=== PATIENT | male | born 1960 | race Caucasian/White ===

== ENCOUNTER → 2019-12-04 | Outpatient (CLI) | payer OTHER ==
--- NOTE | 2019-12-04 10:51 | P.STRESS ---
- Stress Test Note Stress Test Results/Findings: Exam Performed: stress echo exercise Exam Date: 12/04/19 Reason for Exam: CHEST PAIN Height: 5 ft 10 in Weight: 197 kg Protocol: BILLY Stage: 3 Duration of Exercise: 7:00 Resting Heart Rate: 87 Resting Blood Pressure: 136/57 Maximum Achieved Heart Rate: 160 Maximum Achieved Blood Pressure: 201/79 85% PMHR: 138 100% PMHR: 162 METS: 8.5 Technologist Comment: Stress Test Results/Findings: This is a 58-year-old gentleman with history of hypertension, hypercholesteremia, family history of ischemic heart disease and also smoking history. Being evaluated for chest pain, shortness of breath and palpitations. Stress data: Baseline EKG showed sinus rhythm with normal DE interval and QRS du ration. Blood pressure at rest is 136/57 with pulse rate of 87. Patient walked on the Iblly protocol for 7 minutes achieving a maximum heart rate of 159 with a blood pressure of 201/79. EKGs taken during and after exercise did not reveal any significant changes from the baseline. Echo data: Baseline echo images showed normal wall motion and thickening. Exercise echo images showed augmentation of wall motion and thickening in all the segments. Final impression : #1. Negative stress test #2. Negative stress echo
--- NOTE | 2019-12-04 11:37 | ECHOS ---
Stress Test Results/Findings: Exam Performed: stress echo exercise Exam Date: 12/04/19 Reason for Exam: CHEST PAIN Height: 5 ft 10 in Weight: 197 kg Protocol: BILLY Stage: 3 Duration of Exercise: 7:00 Resting Heart Rate: 87 Resting Blood Pressure: 136/57 Maximum Achieved Heart Rate: 160 Maximum Achieved Blood Pressure: 201/79 85% PMHR: 138 100% PMHR: 162 METS: 8.5 Technologist Comment: Stress Test Results/Findings: This is a 58-year-old gentleman with history of hypertension, hypercholesteremia, family history of ischemic heart disease and also smoking history. Being evaluated for chest pain, shortness of breath and palpitations. Stress data: Baseline EKG showed sinus rhythm with normal RI interval and QRS duration. Blood pressure at rest is 136/57 with pulse rate of 87. Patient walked on the Billy protocol for 7 minutes achieving a maximum heart rate of 159 with a blood pressure of 201/79. EKGs taken during and after exercise did not reveal any significant changes from the baseline. Echo data: Baseline echo images showed normal wall motion and thickening. Exercise echo images showed augmentation of wall motion and thickening in all the segments. Final impression : #1. Negative stress test #2. Negative stress echo MTDD
== END | disposition home or self-care (01) ==
LOC: RADNMMAIN 09:20
PROVIDERS: ATTEND Family Medicine
DX: R06.00 Dyspnea, unspecified (principal)
CPT/HCPCS: 93351

== ENCOUNTER 2020-08-26 08:04 | Day surgery (SDC) | payer OTHER ==
[2020-08-24 15:41] VITALS: BMI 27.2
[~2020-08-26 08:04] MED LIST: LACTATED RINGERS 1,000 ML IV SCH
[2020-08-26] MEDS ORDERED: LACTATED RINGERS 1,000 ML IV ONE (08:21)
[2020-08-26 08:22] VITALS: RESP 18; TEMP 97.8
[2020-08-26] MEDS ORDERED: PROPOFOL 10 MG/ML 20 ML VIAL IV ONE (09:05)
--- NOTE | 2020-08-26 09:37 | P.PCN ---
Date of Procedure: 08/26/20 Description of Procedure: BRIEF HISTORY: Patient is a 59-year-old male presenting for outpatient colonoscopy for evaluation of history of colon polyps. Last colonoscopy in 2014 with polypectomy at that time. No change in bowel habits, blood per rectum or abdominal pain reported. No family history of colon cancer PROCEDURE PERFORMED: Colonoscopy. PREOPERATIVE DIAGNOSIS: Personal history of colon polyps, last colonoscopy 2014. ESTIMATED BLOOD LOSS: Minimal. IV sedation per Anesthesia. PROCEDURE: After informed consent was obtained, the patient, was brought into the endoscopy unit. IV sedation was administered by Anesthesia under continuous monitoring. Digital rectal examination was normal. Initially the Olympus CF-190 flexible video colonoscope was then inserted in the rectum, gradually advanced into the cecum without any difficulty. Careful examination was performed as the scope was gradually being withdrawn. Ileocecal valve and the appendiceal orifice were visualized and appeared normal. Prep was excellent. Mucosa of the cecum, ascending colon, transverse colon, descending colon, sigmoid colon, and rectum appeared normal. Retroflexion was performed in the rectum and no lesions were seen, low-grade internal hemorrhoids noted. The patient tolerated the procedure well. IMPRESSION: Normal-appearing colon from rectum to cecum. Internal hemorrhoids. RECOMMENDATIONS: Findings of this examination were discussed with the patient and his family. Okay to resume diet. Okay to resume medications. Recommend repeat colonoscopy in 10 years for screening for malignant neoplasm of the colon or sooner if signs or symptoms which warrant further evaluation develop.
[2020-08-26 09:41] VITALS: BP 109/71
[2020-08-26 09:53] VITALS: PULSE 74
== END 2020-08-26 10:17 | disposition home or self-care (01) ==
LOC: ORWHC2ENDO 08:04
PROVIDERS: ATTEND Internal Medicine
DX: Z12.11 Encounter for screening for malignant neoplasm of colon (principal); K64.8 Other hemorrhoids; I10 Essential (primary) hypertension; E78.5 Hyperlipidemia, unspecified; Z86.010 Personal history of colon polyps; Z87.891 Personal history of nicotine dependence; Z79.899 Other long term (current) drug therapy; Z98.890 Other specified postprocedural states
CPT/HCPCS: J2704; G0105

== ENCOUNTER → 2021-01-11 | Outpatient (CLI) | payer OTHER ==
--- NOTE | 2021-01-20 12:49 | EM ---
EVENT MONITOR SEVEN-DAY EVENT MONITOR: INDICATION: Palpitations. This 7-day event monitor showed normal sinus rhythm with episodes of sinus tachycardia. The maximum heart rate was 130 beats per minute. No significant cardiac arrhythmias are documented. JORGE A / IONAN: [id number] /
== END | disposition home or self-care (01) ==
LOC: RADECHMAIN 11:50
PROVIDERS: ATTEND Family Medicine
DX: R00.2 Palpitations (principal)
CPT/HCPCS: 93270

== ENCOUNTER → 2021-09-17 | Outpatient (CLI) | payer OTHER ==
[2021-09-17 16:05] LABS: HGB 12.8 g/dL (13.0-17.0); MCH 28.4 pg (27.0-32.0); MCHC 33.7 g/dL (32.0-37.0); MCV 84.4 fL (80.0-97.0); Mean Platelet Volume 9.5 fL (9.5-12.2); NRBC Per 100 WBC 0 /100 WBCS (0.0-0.0); Platelet Count 266 X 10*3/uL (140-440); RDW 12.7 % (11.5-14.5); WBC 3.91 X 10*3/uL (4.50-10.00)
[2021-09-17 16:13] LABS: African American GFR (CKD) 97.8 (60.0-200.0); Anion Gap 13.4 mmol/L (10.00-18.00); Blood Urea Nitrogen 12.5 mg/dL (9.0-27.0); Carbon Dioxide 24.1 mmol/L (20.0-27.5); Non-African American GFR(CKD) 84.4 (60.0-200.0)
== END | disposition home or self-care (01) ==
LOC: LABPAT 11:08
PROVIDERS: ATTEND Internal Medicine Interventional Cardiology
DX: Z01.812 Encounter for preprocedural laboratory examination (principal); R07.9 Chest pain, unspecified
CPT/HCPCS: 80051; 82565; 84520; 85027

== ENCOUNTER 2021-09-23 10:49 | Day surgery (SDC) | payer OTHER ==
[2021-09-16 11:38] VITALS: BMI 28.7
[~2021-09-23 10:49] MED LIST changes: +ALPRAZolam 0.25 MG TAB PO PRN; +ALPRAZolam 0.5 MG TAB PO PRN; +ASPIRIN 325 MG TAB PO STA; +ATORVASTATIN 80 MG TAB PO STA; +HEPARIN SODIUM,PORCINE 10,000 UNIT in SODIUM CHLORIDE 0.9% 1,000 ML IRRIGATION PRN; +HEPARIN SODIUM,PORCINE 2,500 UNIT in SODIUM CHLORIDE 0.9% 250 ML IRRIGATION PRN; -LACTATED RINGERS 1,000 ML IV SCH; +NITROGLYCERIN SL TABS 0.4 MG TAB SUBLINGUAL PRN; +SODIUM CHLORIDE 0.9% 1,000 ML in EMPTY BAG 1 BAG IV SCH
[2021-09-23] MEDS ORDERED: SODIUM CHLORIDE 0.9% 1,000 ML IV ONE (11:00)
[2021-09-23 11:16] VITALS: TEMP 98.4
[2021-09-23] MEDS ORDERED: HEPARIN SODIUM 1,000 UN/ML (10ML VL) ONE (12:10)
[2021-09-23] MEDS ORDERED: VERAPAMIL 2.5 MG/ML 2 ML AMP ONE (12:10)
[2021-09-23] MEDS ORDERED: fentaNYL (PF) 50 MCG/ML 2 ML AMP ONE (12:33)
[2021-09-23] MEDS ORDERED: fentaNYL (PF) 50 MCG/ML 2 ML AMP IV ONE (12:34)
[2021-09-23] MEDS ORDERED: MIDAZOLAM 2 MG/2 ML VIAL IV ONE ×2 (12:34)
[2021-09-23] MEDS ORDERED: VERAPAMIL SYRINGE (5 MG/10 ML) INTRAARTER ONE (12:35)
[2021-09-23] MEDS ORDERED: LIDOCAINE 0.5% (PF) 5 MG/ML (50 ML SDV) SQ ONE (12:35)
[2021-09-23] MEDS ORDERED: HEPARIN SODIUM 1,000 UN/ML (10ML VL) IV ONE (12:38)
[2021-09-23] MEDS ORDERED: IOPAMIDOL-370 125ML BTL INJ ONE (12:48)
[2021-09-23] MEDS ORDERED: RX INFO: IV CONTRAST WAS GIVEN 1 EACH MISC MISCELLANE PRN (12:52)
--- NOTE | 2021-09-23 12:56 | P.PCN ---
Date of Procedure: 09/23/21 Operative Findings: CARDIAC CATHETERIZATION PERFORMING PHYSICIAN: Jon Perez MD, RPVI PROCEDURE PERFORMED: 1. Selective right and left coronary angiogram 2. Left heart catheterization INDICATION: This is a 6-year-old gentleman who was experiencing symptoms of chest pain and shortness of breath and he underwent myocardial perfusion imaging stress test showed an inferior ischemia. In the light of that heart catheterization was advised COMPLICATION: None APPROACH: Right radial artery LEVEL OF SEDATION: Moderate with a sedation length of then minutes PROCEDURE DESCRIPTION: After obtaining an informed consent, the patient was brought to cardiac labeling strategist. Local anesthesia was performed using lidocaine subcutaneously. The right radial artery was cannulated using Seldinger technique, the guidewire passed easily, following that we advanced a 5-Togolese sheath dilator assembly, the wire and dilator were removed and sheath was flushed. Following that, 2 mg of verapamil along with 3000 unit heparin were given. Selective right and left coronary angiogram using a 6-Togolese JR4 and JL 3.5 catheters. Following that we did left heart catheterization using 6-Togolese pigtail catheter. The procedure was completed there was no complication. SELECTIVE CORONARY ANGIOGRAM: The right coronary artery: Is a large caliber vessel and a dominant vessel. The RCA is angiographically normal. Distally bifurcates into PDA and PLV branches both appeared to be angiographically normal Left main: Is angiographically normal. Bifurcates into LCx and LAD The left circumflex: Is a large caliber vessel and nondominant vessel. The LCx appeared to be angiographically normal. Gives rises into a large limb branch which trifurcates into 3 subbranches all appears to be angiographically normal The left anterior descending artery: Is angiographically normal. Gives rises into a large diagonal branch which seems to be angiographically normal HEMODYNAMICS: The LVEDP was about 6 mmHg was no significant gradient across aortic valve CONCLUSION: 1. Normal coronary angiogram 2. Normal LVEDP POSTPROCEDURE MANAGEMENT: Medical treatment and follow-up with the patient
[2021-09-23] MEDS ORDERED: SODIUM CHLORIDE 0.9% 1,000 ML IV SCH (13:00)
[2021-09-23 15:56] VITALS: RESP 16
[2021-09-23 16:53] VITALS: BP 116/69; PULSE 75
== END 2021-09-23 16:55 | disposition home or self-care (01) ==
LOC: CATHCVL 10:49
PROVIDERS: ATTEND Internal Medicine Interventional Cardiology
DX: I20.0 Unstable angina (principal); R94.39 Abnormal result of other cardiovascular function study; I10 Essential (primary) hypertension; E78.5 Hyperlipidemia, unspecified; Z20.822 Contact with and (suspected) exposure to COVID-19; E78.00 Pure hypercholesterolemia, unspecified; R00.0 Tachycardia, unspecified; F17.200 Nicotine dependence, unspecified, uncomplicated; F10.20 Alcohol dependence, uncomplicated; I77.819 Aortic ectasia, unspecified site; Z79.899 Other long term (current) drug therapy
CPT/HCPCS: 93458; 87635; C1769; C1894; J2250; J2001; J3010; J1644; Q9967

== ENCOUNTER 2024-02-27 13:30 | Day surgery (SDC) | payer OTHER ==
[2024-02-22 12:06] VITALS: BMI 28.7
[~2024-02-27 13:30] MED LIST changes: -ALPRAZolam 0.25 MG TAB PO PRN; -ALPRAZolam 0.5 MG TAB PO PRN; -ASPIRIN 325 MG TAB PO STA; -ATORVASTATIN 80 MG TAB PO STA; -HEPARIN SODIUM,PORCINE 10,000 UNIT in SODIUM CHLORIDE 0.9% 1,000 ML IRRIGATION PRN; -HEPARIN SODIUM,PORCINE 2,500 UNIT in SODIUM CHLORIDE 0.9% 250 ML IRRIGATION PRN; +LIDOCAINE 1% (10MG/ML) FOR IV START INTRADERMA PRN; -NITROGLYCERIN SL TABS 0.4 MG TAB SUBLINGUAL PRN; -SODIUM CHLORIDE 0.9% 1,000 ML in EMPTY BAG 1 BAG IV SCH
[2024-02-27] MEDS: LACTATED RINGERS 1,000 ML IV SCH (15:14)
[2024-02-27 15:23] VITALS: RESP 16; TEMP 98
[2024-02-27] MEDS: IV FLUID CONTINUATION 1,000 ML IV ONE ×2 (15:23→15:56)
[2024-02-27] MEDS ORDERED: PROPOFOL 10 MG/ML 20 ML VIAL IV ONE (15:59)
[2024-02-27] MEDS ORDERED: LIDOCAINE 1% INJ 10MG/ML (20 ML MDV) ONE (15:59)
--- NOTE | 2024-02-27 16:09 | P.PCN ---
Date of Procedure: 02/27/24 Procedure(s) Performed: BRIEF HISTORY: Patient is a 63-year-old, pleasant, white male scheduled an upper endoscopy for evaluation of iron deficiency EMEA. He denies any GI symptoms.. Colonoscopy in August 2020 was unremarkable. PROCEDURE PERFORMED: Esophagogastroduodenoscopy with biopsy. PREOPERATIVE DIAGNOSIS: Iron deficiency anemia. IV sedation per anesthesia. PROCEDURE: After informed consent was obtained, the patient was brought into the endoscopy unit. IV sedation was administered by Anesthesia under continuous monitoring. Initially the Olympus GIF-140 video endoscope was inserted into the mouth. Esophagus intubated without any difficulty. It was gradually advanced into the stomach and duodenum and carefully examined. The bulb and the second part of the duodenum appeared normal. Do not rule out celiac disease. The scope at this time was withdrawn to the stomach, adequately insufflated with air, and upon careful examination, mucosa of the antrum, mild gastritis and biopsies were done from this area. There was small gastric polyps in the proximal body of the stomach which were biopsied. Rest of the body, cardia and the fundus appeared normal. The scope was then withdrawn into the esophagus. The GE junction was located at 39 cm from the incisors. 2 superficial erosions of t he distal esophagus consistent with LA grade B reflux esophagitis. Rest of the esophagus appeared normal and the patient tolerated the procedure well. IMPRESSION: 1. Mild antral gastritis. 2. Linear erosions of the distal esophagus consistent with LA grade B reflux esophagitis 3. Small gastric polyp. RECOMMENDATIONS: The findings of this examination were discussed with the patient as well as his family. He was advised to follow the biopsy.. Use [id number] H2 blockers as needed 45 symptoms. CBC periodically.
[2024-02-27 16:33] VITALS: BP 148/78; PULSE 58
== END 2024-02-27 16:57 | disposition home or self-care (01) ==
LOC: ORWHC2ENDO 13:30
PROVIDERS: ATTEND Internal Medicine Gastroenterology
DX: K31.7 Polyp of stomach and duodenum (principal); K31.9 Disease of stomach and duodenum, unspecified; K29.70 Gastritis, unspecified, without bleeding; D50.9 Iron deficiency anemia, unspecified; I10 Essential (primary) hypertension; E78.5 Hyperlipidemia, unspecified; G47.33 Obstructive sleep apnea (adult) (pediatric); Z87.891 Personal history of nicotine dependence; Z99.89 Dependence on other enabling machines and devices; Z79.899 Other long term (current) drug therapy
CPT/HCPCS: 88305; 43239; J2003; J2704